=== PATIENT | male | born 1935 | race Caucasian/White ===

== ENCOUNTER 2017-02-07 14:02 | Emergency (ER) | payer OTHER, MEDICARE ==
[~2017-02-07] VITALS: Ht 177.8 cm; Wt 74.4 kg
--- NOTE | ~2017-02-07 | EKG ---
[place] [address] [place] [facility] [place] [address] ELECTROCARDIOGRAM REPORT Name: BRITTALEXYKEY MARTIN [id number] Admission: 02/07/17 Attend Phys: Discharge: 02/07/17 Date of : 39 Report #: [id number] THIS REPORT FOR: //name// [facility] ED Test Date: 2017-02-07 Test Time: 14:26:50 Pat Name: LEXY CALLEJAS Department: Room: Gender: M Senior Hardware Design Engineer: [id number] : 1935 Requested By: Britt Chase Order Number: [id number] MD: Nik Nicolas Measurements Intervals [place] Rate: 60 P: MA: QRS: 269 QRSD: 137 T: 90 QT: 474 QTc: 474 Interpretive Statements Afib/flutter and ventricular-paced rhythm No further analysis attempted due to paced rhythm Compared to ECG 12/04/2014 01:04:53 No significant changes Electronically Signed On 02-09-2017 22:11:12 CDT by Nik Nicolas [email or web address] <ELECTRONICALLY SIGNED> By: Nik Nicolas MD 02/09/17 2211 1426 142 Nik Nicolas MD /[facility]
[~2017-02-07 14:02] MED LIST: ASPIR 8181 MG PO; ASPIRIN EC81 M1 PO; COUMADIN 5 MG TA5 M1 PO; COUMADIN7.5 MG PO; ENOXAPARIN80 MG/0.8 SUBQ; FISH OIL 1,0001 EAC5 PO; FISH OIL 1,4001 EACH PO; GLUCOSAMINE1000 MG PO; IRON325 PO; KEFLEX500 MG PO; LACTULOSE20 GM/30 M PO; LANOXIN 0.120.125 M1 PO; LEVAQUIN 750 M750 MG PO; NORCO 5-325 TA1 EACH PO; PAIN & FEVER325 MG PO; PRILOSEC 20 MG20 MG PO; PRILOSEC20 MG PO; PROTONIX40 M2 PO; RED YEAST RICE600 MG PO; SOTALOL 120 MG120 MG PO; SOTALOL160 MG PO; SPIRONOLACTONE25 M1 PO; VITAMIN D1000 UNI1 PO; VITAMIN D31000 UNI2 PO; VITAMIN D32000 UNI1 PO; VITAMIN D400 UNI1 PO; XIFAXAN550 M1; ZOFRAN ODT4 MG PO
[2017-02-07 14:47] LABS: HEMATOCRIT 48.7 % (42.0-52.0); MCH 36.8 pg (26.0-34.0); MCHC 32.9 g/dL (28.0-37.0); RBC 4.35 mil/uL (4.50-6.00); RDW 15.2 % (10.5-14.5); URINE BILIRUBIN NEGATIVE (Negative); URINE BLOOD 2+ (Negative); URINE COLOR YELLOW; URINE GLUCOSE-RANDOM* 3+ (Negative); URINE KETONES NEGATIVE (Negative); URINE NITRITE NEGATIVE (Negative); URINE PROTEIN (DIPSTICK) TRACE (Negative); WBC 11.9 thou/uL (4.0-11.0)
[2017-02-07 14:49] LABS: MANUAL DIFF YES; PLATELET COUNT 93 thou/uL (150-400)
[2017-02-07 14:50] LABS: ANION GAP 4 mmol/L (7-16); BUN 25 mg/dL (7-18); CALCIUM 9.3 mg/dL (8.5-10.1); CHLORIDE 106 mmol/L (98-107); CO2 29 mmol/L (21-32); CREATININE 0.9 mg/dL (0.7-1.3); GLUCOSE 223 mg/dL (74-106); POTASSIUM 4.8 mmol/L (3.5-5.1); SODIUM 139 mmol/L (136-145)
[2017-02-07 14:58] LABS: BACTERIA None Seen /HPF (None Seen); CASTS None Seen /LPF (None Seen); SQUAMOUS None Seen /LPF (0-3); URINE RBC 3-10 Few /HPF (0-2); URINE WBC None Seen /HPF (0-5)
[2017-02-07 14:59] LABS: ALBUMIN 2.8 g/dL (3.4-5.0); ALKALINE PHOSPHATASE 332 U/L (46-116); CRYSTALS None Seen /LPF (None Seen); SGOT 61 U/L (15-37); SGPT 72 U/L (30-65); TOTAL BILIRUBIN 6.6 mg/dL (<0.1-1.0); TOTAL PROTEIN 6.2 g/dL (6.4-8.2); TROPONIN-I < 0.04 ng/mL (<0.04-0.07)
[2017-02-07 15:14] LABS: ABSOLUTE NEUTROPHILS 8.3 thou/uL (1.4-8.2); MACROCYTES 1+; TOTAL CELL COUNT 100
[2017-02-07 16:07] VITALS: BP 149/83
== END 2017-02-07 16:00 | disposition home or self-care (01) ==
LOC: ER 14:02
PROVIDERS: Nurse Practitioner Family
DX: K74.60 Unspecified cirrhosis of liver (principal); E86.0 Dehydration; E80.6 Other disorders of bilirubin metabolism; I48.91 Unspecified atrial fibrillation; I63.9 Cerebral infarction, unspecified; K76.6 Portal hypertension; Z86.73 Personal history of transient ischemic attack (TIA), and cerebral infarction without residual deficits; Z95.1 Presence of aortocoronary bypass graft; Z86.2 Personal history of diseases of the blood and blood-forming organs and certain disorders involving the immune mechanism; Z87.891 Personal history of nicotine dependence

== ENCOUNTER → 2017-06-16 | Outpatient (CLI) | payer OTHER, MEDICARE ==
[~2017-06-16] MED LIST changes: +ATENOLOL 50MG T50 M1 PO; +GLIMEPIRIDE1 MG PO; +VITAMIN D1000 UNI2 PO
== END ==
LOC: ULTRA 15:35
DX: K74.60 Unspecified cirrhosis of liver (principal); R18.8 Other ascites; J90 Pleural effusion, not elsewhere classified

== ENCOUNTER 2017-07-02 16:44 | Inpatient (IN) | payer OTHER, MEDICARE ==
[~2017-07-02] VITALS: Ht 175.3 cm; Wt 68.3 kg
--- NOTE | ~2017-07-02 | H ---
[facility] [place] [address] HISTORY AND PHYSICAL Name: LEXY CALLEJAS Room #: 420-P ADM IN M.R.#: [id number] Admission: 07/02/17 Attend Phys: Jimmy Harding Discharge: Date of : 39 Report #: [id number] THIS REPORT FOR: //name// CC: Mikal Salinas DATE OF SERVICE: 07/02/2017 CHIEF COMPLAINT: Weakness. HISTORY OF PRESENT ILLNESS: The patient is an 82-year-old gentleman, who was admitted from the office with weakness and a recent elevated white blood cell count. He was hospitalized twice in early May for new diagnosis of diabetes type 2 and required medication titration and education to stabilize this. He since has been home, but in recent weeks developed significant lower extremity edema suddenly that required the addition of metolazone for diuretic effect. He underwent abdominal ultrasound in mid May, which revealed his TIPS shunt still functioning appropriately. He otherwise has been his usual self. Recent lab work revealed ammonia level of only 22. Transaminase level slightly elevated in the 70s, but his white blood cell count of an outpatient testing was 40 two days ago. A repeat last night was 29. He denies any symptoms of infection including no fever, productive cough, sore throat, nausea, vomiting. He denies any excessive diarrhea, although he does have frequent stools due to chronic use of lactulose. PAST MEDICAL HISTORY: Idiopathic cirrhosis, history of hepatic encephalopathy, history of esophageal varices with GI bleed, history of paroxysmal AFib, coronary artery disease, cardioembolic stroke with TIA, hypertension, sick sinus syndrome. 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 PAST SURGICAL HISTORY: Pacemaker, TIPS procedure in 2013, left total hip in 2015. FAMILY HISTORY: Noncontributory. SOCIAL HISTORY: No chronic alcohol or tobacco use. He is and lives with his . ALLERGIES: None. MEDICATIONS: Atenolol 50 mg, lactulose twice a day, Lasix 40 mg, potassium 10 mEq, vitamin D, Amaryl 4 mg. REVIEW OF SYSTEMS: He denies headache, chest pain, shortness of breath, abdominal pain, constipation, dysuria, myalgias, arthralgias, syncope or fall. [address] [address] HISTORY AND PHYSICAL Name: LEXY CALLEJAS Room #: [facility] IN .R.#: [id number] Admission: 07/02/17 Attend Phys: Jimmy Harding Discharge: Date of : 39 Report #: [id number] OBJECTIVE: VITAL SIGNS: Temperature 36.5, pulse 50, respirations 18, blood pressure 99/55, O2 sat 99% on room air. GENERAL: He is awake and alert, in no distress. HEAD AND NECK: Unremarkable. He has resolving subconjunctival bleed in the right eye. LUNGS: Clear with no wheezing. HEART: Regular, no murmur. ABDOMEN: Soft, normoactive bowel sounds. No rebound or guarding. EXTREMITIES: No cyanosis, clubbing. There is just trace to 1+ pedal edema. His lower extremity edema is much improved from the office last week. NEUROLOGIC: Cranial nerves intact. Speech is fluent. He is oriented to surroundings and recognizes me, was able to walk under his own power to the bathroom. LABORATORY DATA: Urinalysis is unremarkable. Potassium was 3, creatinine 1.4. White count 29 with 88% segs. Chest x-ray was negative. Blood cultures are pending. Abdominal ultrasound pending. ASSESSMENT: 1. Idiopathic cirrhosis. 2. Leukocytosis. 3. Hypokalemia due to diuretic effect. 4. History of transjugular intrahepatic portosystemic shunt from 2013. 5. Severe protein-calorie malnutrition, albumin 1.9. 6. Recent new onset diabetes type 2. 7. Anemia of chronic disease. PLAN: Empiric antibiotics were started overnight, but since he has no infectious symptoms, we will discontinue those for now and await further studies: His ultrasound is pending. His other home medications have been ordered and potassium supplementation has been given. I will continue to monitor his status for any new signs or symptoms. <ELECTRONICALLY SIGNED> By: Mathew Urrutia MD 07/03/17 1629 0953 1021 Mathew Urrutia MD /nt
--- NOTE | ~2017-07-02 | D ---
[facility] [place] [address] DISCHARGE SUMMARY Name: LEXY CALLEJAS Room #: 420-P [facility] IN M.R.#: [id number] Admission: 07/02/17 Attend Phys: Jimmy Harding Discharge: 07/08/17 Date of : 39 Report #: [id number] THIS REPORT FOR: //name// CC: Mikal Salinas FINAL DIAGNOSES: 1. Gram-negative bacteremia. 2. Cirrhosis. 3. Diabetes type 2. HOSPITAL COURSE: The patient was admitted with an elevated white count. Empiric antibiotics were started eventually by the third hospital day, gram-negative rods are growing from blood cultures. Urinalysis was fairly unremarkable and so was chest x-ray. Dr. Jabier Salinas followed him from [place] and ordered antibiotics accordingly. The final identification was still pending and this was going to require the sample to be sent out of state. His white count normalized and other medications were continued. He had no other interval complications. Blood sugars were radically controlled with oral agent due to his new diagnosis of diabetes, but generally ranged from the 80s-90s in the morning to 320 by evening. PHYSICAL EXAMINATION: GENERAL: On the day of discharge, he was awake and alert with stable vital signs. LUNGS: Clear. HEART: Regular. ABDOMEN: Soft, normoactive bowel sounds. EXTREMITIES: Showed 1+ ankle and pedal edema. DISPOSITION: He is discharged to home with diet, activity as tolerated, resume all home medications with Cipro 750 mg b.i.d. for one week. Follow up with Dr. Jabier Salinas and Dr. Yury Salinas in 1 week. <ELECTRONICALLY SIGNED> By: Mathew Urrutia MD 07/10/1731 8 Mathew Urrutia MD /nt
--- NOTE | ~2017-07-02 | HC ---
[facility] [place] [address] CONSULTATION Name: BRITTALEXY MARTIN Room #: 420-P ADM IN M.R.#: [id number] Admission: 07/02/17 Attend Phys: Jimmy Harding Discharge: Date of : 37 Report #: [id number] THIS REPORT FOR: //name// CC: Mikal Salinas DATE OF SERVICE: 07/04/2017 REASON FOR CONSULTATION: I was asked to evaluate concerning Gram-negative bacteremia in the setting of cirrhosis. HISTORY OF PRESENT ILLNESS: The patient is an 82-year-old who was admitted on 07/02/2017 with lethargy and hyperglycemia. He was found to have a white count of 29,000. No other localizing symptoms were identified. He does have a TIPS shunt in place and has been studied and shows that it is functioning reasonably well. His ammonia levels have been reasonable. He has had no cough or sputum production. There has been no nausea, vomiting or diarrhea. No hemoptysis or bloody stools. Minimal dysuria. No skin lesions. His stools remain loose since he is on lactulose. REVIEW OF SYSTEMS: Negative other than what is described above. PAST MEDICAL HISTORY: Idiopathic cirrhosis with encephalopathy, esophageal varices and upper GI bleed, status post TIPS procedure with good control. 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 Does have a pacemaker, has underlying paroxysmal atrial fibrillation and coronary artery disease. He has had a cardioembolic stroke and hypertension, sick sinus syndrome, and left total hip arthroplasty. ALLERGIES: None known. MEDICATIONS: As noted on his MAR, now on Zosyn. FAMILY HISTORY: Noncontributory. SOCIAL HISTORY: He is a nonsmoker, no significant alcohol intake. He is . PHYSICAL EXAMINATION: VITAL SIGNS: He is afebrile, hemodynamically stable. GENERAL: He is a bit lethargic, but oriented and able to converse reasonably well during the evaluation. He has had scleral icterus. HEENT: Otherwise, unremarkable. NECK: Supple. LUNGS: Clear. HEART: Regular without appreciable murmur. [facility] [address] [place] [address] CONSULTATION Name: CALLEJASLEXY Room #: 420-P ADM IN .R.#: [id number] Admission: 07/02/17 Attend Phys: Jimmy Harding Discharge: Date of : 37 Report #: [id number] ABDOMEN: Soft, nontender. No hepatosplenomegaly or mass. EXTREMITIES: 1+ peripheral edema in the lower extremities. LABORATORY STUDIES: Sodium 142, potassium 3.1, bicarb of 36, creatinine 1.3, ALT 66, bilirubin 6.2, albumin of 1.9. Hemoglobin 12.6, platelet count 103,000. White count initially 29,000, now down to 16.8. Urinalysis unremarkable. Blood cultures 2/2 cultures showing gram-negative bacilli. Ultrasound of the abdomen showed that his TIPS velocities are stable. No evidence of portal hypertension. Chest x-ray was clear. IMPRESSION: An 82-year-old with cirrhosis, presents with Gram-negative bacteremia. I suspect intra-abdominal source of infection. Would recommend CT scan of the abdomen and continue with Zosyn as ordered until further information is back from his cultures. <ELECTRONICALLY SIGNED> By: Jabier Salinas MD 07/07/17 0957 1347 0019 Jabier Salinas MD /nt
[2017-07-02] MEDS ORDERED: KLOR-CON 1010 MEQ PO (18:46)
[2017-07-02] MEDS ORDERED: LASIX 20 MG TAB20 MG PO (18:46)
[2017-07-02 20:00] VITALS: BP 110/53
[2017-07-02 21:11] LABS: HEMATOCRIT 37.1 % (42.0-52.0); HEMOGLOBIN 12.7 gm/dL (14.0-18.0); MCH 38.5 pg (26.0-34.0); MCHC 34.3 g/dL (28.0-37.0); MCV 112.2 fL (80.0-100.0); PLATELET COUNT 102 thou/uL (150-400); RBC 3.31 mil/uL (4.50-6.00); RDW 16.6 % (10.5-14.5); WBC 29.3 thou/uL (4.0-11.0)
[2017-07-02 21:24] LABS: ALBUMIN 1.9 g/dL (3.4-5.0); CALCIUM 8.9 mg/dL (8.5-10.1); CREATININE 1.6 mg/dL (0.7-1.3); TOTAL BILIRUBIN 6.2 mg/dL (<0.1-1.0); TOTAL PROTEIN 5.2 g/dL (6.4-8.2)
[2017-07-02 21:33] LABS: POTASSIUM 2.8 mmol/L (3.5-5.1)
[2017-07-02 21:40] LABS: ABSOLUTE NEUTROPHILS 25.8 thou/uL (1.4-8.2); ANISOCYTOSIS 1+; MACROCYTES 3+
[2017-07-03 00:34] LABS: CALCIUM 8.8 mg/dL (8.5-10.1); CREATININE 1.4 mg/dL (0.7-1.3); MAGNESIUM 1.8 mg/dL (1.8-2.4)
[2017-07-03 04:30] VITALS: BP 128/59
[2017-07-03 06:41] VITALS: BP 160/59
[2017-07-03 07:43] VITALS: BP 99/55
[2017-07-03 09:19] LABS: URINE BILIRUBIN NEGATIVE (Negative); URINE BLOOD 1+ (Negative); URINE CLARITY CLEAR; URINE COLOR YELLOW; URINE GLUCOSE-RANDOM* NEGATIVE (Negative); URINE KETONES NEGATIVE (Negative); URINE LEUKOCYTES-REFLEX NEGATIVE (Negative); URINE NITRITE-REFLEX NEGATIVE (Negative); URINE PROTEIN (DIPSTICK) NEGATIVE (Negative); URINE UROBILINOGEN 0.2 E.U./dl (0.2-1.0)
[2017-07-03 09:35] LABS: BACTERIA-REFLEX 1-9 Few /HPF (None Seen); CRYSTALS None Seen /LPF (None Seen); HYALINE CASTS 0-3 Few /LPF (None Seen); SQUAMOUS None Seen /LPF (0-3); URINE RBC 3-10 Few /HPF (0-2); URINE WBC-REFLEX 0-5 Rare /HPF (0-5)
[2017-07-03 11:14] LABS: HEMATOCRIT 35.6 % (42.0-52.0); HEMOGLOBIN 12.7 gm/dL (14.0-18.0); MCH 39.9 pg (26.0-34.0); MCHC 35.6 g/dL (28.0-37.0); MCV 112.1 fL (80.0-100.0); RBC 3.18 mil/uL (4.50-6.00); RDW 16.4 % (10.5-14.5); WBC 24.4 thou/uL (4.0-11.0)
[2017-07-03 11:22] LABS: CALCIUM 8.4 mg/dL (8.5-10.1); CREATININE 1.5 mg/dL (0.7-1.3); POTASSIUM 3.2 mmol/L (3.5-5.1)
[2017-07-03 15:53] VITALS: BP 107/60
[2017-07-03 20:37] VITALS: BP 105/55
[2017-07-04 04:09] VITALS: BP 134/61
[2017-07-04 06:06] LABS: HEMATOCRIT 36.9 % (42.0-52.0); HEMOGLOBIN 12.6 gm/dL (14.0-18.0); MCH 38.7 pg (26.0-34.0); MCHC 34.1 g/dL (28.0-37.0); MCV 113.5 fL (80.0-100.0); RBC 3.26 mil/uL (4.50-6.00); RDW 16.9 % (10.5-14.5); WBC 16.8 thou/uL (4.0-11.0)
[2017-07-04 06:21] LABS: CALCIUM 8.3 mg/dL (8.5-10.1); CREATININE 1.3 mg/dL (0.7-1.3); POTASSIUM 3.1 mmol/L (3.5-5.1)
[2017-07-04 07:35] VITALS: BP 118/57
[2017-07-04 15:45] VITALS: BP 109/60
[2017-07-04 20:00] VITALS: BP 119/62
[2017-07-05 04:00] VITALS: BP 151/79
[2017-07-05 06:13] LABS: HEMATOCRIT 37.7 % (42.0-52.0); HEMOGLOBIN 13.3 gm/dL (14.0-18.0); MCH 39.4 pg (26.0-34.0); MCHC 35.3 g/dL (28.0-37.0); MCV 111.5 fL (80.0-100.0); RBC 3.38 mil/uL (4.50-6.00); RDW 16.7 % (10.5-14.5); WBC 12.1 thou/uL (4.0-11.0)
[2017-07-05 06:31] LABS: ALBUMIN 1.7 g/dL (3.4-5.0); CALCIUM 8.9 mg/dL (8.5-10.1); CREATININE 1.1 mg/dL (0.7-1.3); POTASSIUM 3.1 mmol/L (3.5-5.1); TOTAL BILIRUBIN 5.6 mg/dL (<0.1-1.0)
[2017-07-05 16:57] VITALS: BP 138/62
[2017-07-05 20:00] VITALS: BP 116/56
[2017-07-06 04:26] VITALS: BP 135/71
[2017-07-06 08:00] VITALS: BP 119/48
[2017-07-06 16:00] VITALS: BP 121/51
[2017-07-06 20:00] VITALS: BP 128/54
[2017-07-07 04:30] VITALS: BP 145/52
[2017-07-07 07:40] VITALS: BP 125/57
[2017-07-07 09:23] LABS: CREATININE 0.9 mg/dL (0.7-1.3); POTASSIUM 3.5 mmol/L (3.5-5.1)
[2017-07-07 16:20] VITALS: BP 133/67
[2017-07-07 19:15] VITALS: BP 121/57
[2017-07-08 03:33] VITALS: BP 102/49
[2017-07-08 06:46] LABS: HEMATOCRIT 33.9 % (42.0-52.0); HEMOGLOBIN 11.7 gm/dL (14.0-18.0); MCH 39.1 pg (26.0-34.0); MCHC 34.5 g/dL (28.0-37.0); MCV 113.1 fL (80.0-100.0); PLATELET COUNT 93 thou/uL (150-400); RDW 15.4 % (10.5-14.5); WBC 14.8 thou/uL (4.0-11.0)
[2017-07-08 07:39] VITALS: BP 115/59
[2017-07-08 07:50] LABS: ABSOLUTE NEUTROPHILS 10.7 thou/uL (1.4-8.2); ATYPICAL LYMPHS 1 %; METAMYELOCYTES 2 %; MYELOCYTES 2 %; POLYCHROMASIA OCCASIONAL
[2017-07-08 07:51] LABS: ANISOCYTOSIS 1+; MACROCYTES 3+
[2017-07-08 08:48] VITALS: BP 115/59
[2017-07-08] MEDS ORDERED: CIPROFLOXACIN500 M1 PO (09:16)
[2018-02-27] MEDS ORDERED: SPIRONOLACTONE25 M1 PO (21:26)
[2018-02-27] MEDS ORDERED: IBUPROFEN 200200 M1 PO (21:28)
[2018-03-01] MEDS ORDERED: SPIRONOLACTONE25 M1 PO (15:47)
[2018-03-04] MEDS ORDERED: NORCO 10-325 T1 EACH PO (12:12)
[2018-03-04] MEDS ORDERED: LASIX 20 MG TAB20 MG PO (12:14)
== END 2017-07-08 10:55 | disposition home or self-care (01) | DRG 432 ==
LOC: 4E 16:44 → ENTRNSPT 07-08 10:35 → EDTRNSPTSTS 07-08 10:37 → 4E 07-08 10:55
PROVIDERS: Internal Medicine; Internal Medicine Geriatric Medicine; Specialist
DX: K74.69 Other cirrhosis of liver (principal); G93.40 Encephalopathy, unspecified; E43 Unspecified severe protein-calorie malnutrition; R78.81 Bacteremia; I48.0 Paroxysmal atrial fibrillation; I25.10 Atherosclerotic heart disease of native coronary artery without angina pectoris; I10 Essential (primary) hypertension; I49.5 Sick sinus syndrome; E11.9 Type 2 diabetes mellitus without complications; Z96.642 Presence of left artificial hip joint; D63.8 Anemia in other chronic diseases classified elsewhere; E87.6 Hypokalemia; T50.2X5A Adverse effect of carbonic-anhydrase inhibitors, benzothiadiazides and other diuretics, initial encounter; Z86.73 Personal history of transient ischemic attack (TIA), and cerebral infarction without residual deficits; Z87.891 Personal history of nicotine dependence; Z95.0 Presence of cardiac pacemaker; Z68.22 Body mass index [BMI] 22.0-22.9, adult; Y92.89 Other specified places as the place of occurrence of the external cause
CPT/HCPCS: 10783

== ENCOUNTER 2018-01-23 11:30 | Emergency (ER) | payer OTHER, MEDICARE ==
[~2018-01-23] VITALS: Ht 177.8 cm; Wt 72.6 kg
--- NOTE | ~2018-01-23 | EKG ---
[place] [address] [place] [address] ELECTROCARDIOGRAM REPORT Name: LEXY CALLEJAS [facility]: [facility] [id number] Admission: 01/23/18 Attend Phys: Discharge: Date of : 37 Report #: [id number] THIS REPORT FOR: //name// [facility] ED Test Date: 2018-01-23 Test Time: 11:51:32 Pat Name: LEXY CALLEJAS Department: Room: Gender: Car Loader: katelin : 1935 Requested By: Qi Mace Order Number: [id number] MD: Donnie Hernandez Measurements Intervals [place] Rate: 80 P: 47 NM: 198 QRS: -82 QRSD: 134 T: 65 QT: 423 QTc: 488 Interpretive Statements Atrial-sensed ventricular-paced rhythm No further analysis attempted due to paced rhythm Compared to ECG 06/07/2017 21:22:19 Atrial fibrillation no longer present Electronically Signed On 01-23-2018 14:59:11 CDT by Donnie Hernandez [email or web address] <ELECTRONICALLY SIGNED> By: Donnie Hernandez MD, [facility] 01/23/18 1459 1151 1151 Donnie Hernandez MD, [facility] /EPI
[~2018-01-23 11:30] MED LIST changes: +CIPROFLOXACIN500 M1 PO; +KLOR-CON 1010 MEQ PO; +LASIX 20 MG TAB20 MG PO
[2018-01-23 12:08] LABS: CALCIUM 8.9 mg/dL (8.5-10.1); CREATININE 0.8 mg/dL (0.7-1.3); POTASSIUM 3.6 mmol/L (3.5-5.1)
[2018-01-23 12:10] LABS: HEMOGLOBIN 15.4 gm/dL (14.0-18.0); MCH 39.2 pg (26.0-34.0); MCHC 35.1 g/dL (28.0-37.0); MCV 111.7 fL (80.0-100.0); RBC 3.94 mil/uL (4.50-6.00); RDW 16.8 % (10.5-14.5); WBC 8.7 thou/uL (4.0-11.0)
[2018-01-23 12:13] LABS: ALBUMIN 2.5 g/dL (3.4-5.0); TOTAL BILIRUBIN 5.8 mg/dL (<0.1-1.0)
[2018-01-23] MEDS ORDERED: ACETAMINOPHEN-1 EAC1 PO (12:29)
[2018-01-23 12:32] LABS: TOTAL PROTEIN 5.6 g/dL (6.4-8.2)
[2018-01-23] MEDS ORDERED: NORCO 5-325 TA1 EACH PO (12:32)
[2018-01-23] MEDS ORDERED: KEFLEX500 M1 PO (12:32)
[2018-01-23 12:38] LABS: ABSOLUTE NEUTROPHILS 6.3 thou/uL (1.4-8.2); METAMYELOCYTES 1 %
[2018-01-23 12:39] LABS: PLATELET COUNT 90 thou/uL (150-400); PLATELET ESTIMATE DECREASED
[2018-01-23 12:40] LABS: ANISOCYTOSIS 1+; MACROCYTES 2+; POLYCHROMASIA SLIGHT
[2018-01-23 16:45] VITALS: BP 132/78
== END 2018-01-23 16:46 | disposition home or self-care (01) ==
LOC: ER 11:30
PROVIDERS: Physician Assistant
DX: G89.18 Other acute postprocedural pain (principal); M54.5 Low back pain; R53.1 Weakness; I48.91 Unspecified atrial fibrillation; Z95.0 Presence of cardiac pacemaker; I25.10 Atherosclerotic heart disease of native coronary artery without angina pectoris; K74.60 Unspecified cirrhosis of liver; K72.90 Hepatic failure, unspecified without coma; E78.5 Hyperlipidemia, unspecified; Z86.73 Personal history of transient ischemic attack (TIA), and cerebral infarction without residual deficits; Z87.891 Personal history of nicotine dependence; Z90.89 Acquired absence of other organs; Z96.642 Presence of left artificial hip joint

== ENCOUNTER 2018-03-16 15:42 | Inpatient (IN) | payer OTHER, MEDICARE ==
[~2018-03-16] VITALS: Ht 175.3 cm; Wt 61.5 kg
--- NOTE | ~2018-03-16 | H ---
[facility] [place] [address] HISTORY AND PHYSICAL Name: LEXY CALLEJAS Room #: 170-16 ADM IN M.R.#: [id number] Admission: 03/16/18 Attend Phys: Prachi Arnold MD Discharge: Date of : 37 Report #: [id number] THIS REPORT FOR: //name// CC: Mikal Arnold DATE OF SERVICE: 03/16/2018 CHIEF COMPLAINT: Weakness and confusion. HISTORY OF PRESENT ILLNESS: The patient is an 82-year-old gentleman with multiple medical problems including cirrhosis of the liver, presented to the Emergency Room from care home rehabilitation with confusion and a little bit of abdominal pain. His said he had been rehabilitating and "doing well" until yesterday evening. She said over the weekend, they had family visitors and he seemed to be getting along okay. She said yesterday he just became progressively more lethargic and confused and complained of low abdominal pain. There were no reports of fever, chills, nausea or vomiting. PAST MEDICAL HISTORY: Nonalcohol-related cirrhosis of the liver, I believe it has been diagnosed as idiopathic. He has had esophageal varices with bleed in the past: Does have a TIPS shunt in place. History of hepatic encephalopathy and history of steroid-induced hyperglycemia. He has had recent multiple vertebral lumbar compression fractures and had several vertebroplasty procedures at [facility] in the summer this year. PAST SURGICAL HISTORY: Unknown. FAMILY HISTORY: Noncontributory. SOCIAL HISTORY: He is , had been living with his until recently. He has been in and out of rehab centers and care home. No chronic alcohol or tobacco use. ALLERGIES: None. MEDICATIONS: Atenolol 50 mg, Aldactone 25 mg, lactulose 20 grams b.i.d., Lasix 20 mg, Zofran. It appeared that there had been in order from care home for OxyContin. REVIEW OF SYSTEMS: He is unable to give review. OBJECTIVE: VITAL SIGNS: Temperature 36.8, pulse 85, respirations 12, blood pressure 110/52, O2 sat 97% on room air. GENERAL: He is drowsy, but opens his eyes and confused. [facility] [address] [place] [address] HISTORY AND PHYSICAL Name: LEXY CALLEJAS Room #: 17016 ADM IN ..#: [id number] Admission: 03/16/18 Attend Phys: Prachi Arnold MD Discharge: Date of : 37 Report #: [id number] HEAD AND NECK: Unremarkable. LUNGS: Clear with no wheezing. HEART: Regular, no murmur. ABDOMEN: Soft, normoactive bowel sounds. EXTREMITIES: There is 2+ edema in the lower legs and dependent edema around the elbows. NEUROLOGIC: He moves all extremities. Global strength about 3/5. LABORATORY DATA: Pertinent ER findings are ammonia 56. CT of the abdomen showed some mild pleural effusions, but it appears the TIPS is in place and patent. ASSESSMENT: 1. Hepatic encephalopathy. 2. Idiopathic cirrhosis. 3. TIPS shunt in place. 4. Anemia of chronic disease. 5. Severe protein-calorie malnutrition, albumin 2.3. PLAN: He has received extra dose of lactulose in the ER and at this point, I will discontinue his narcotics. Supportive measures in place for now. Await urine culture before more antibiotics at this point. <ELECTRONICALLY SIGNED> By: Mathew Urrutia MD 03/17/18 1502 1014 1044 Mathew Urrutia MD /nt
--- NOTE | ~2018-03-16 | D ---
[facility] [place] [address] DISCHARGE SUMMARY Name: LEXY CALLEJAS Room #: 462-P [facility] IN M.R.#: [id number] Admission: 03/16/18 Attend Phys: Prachi Arnold MD Discharge: 03/19/18 Date of : 37 Report #: [id number] THIS REPORT FOR: //name// CC: Mikal Arnold DATE OF SERVICE: 03/19/2018 FINAL DIAGNOSES: 1. 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 2. Nonalcoholic cirrhosis. 3. Chronic back pain. 4. Chronic vertebral compression fractures. HOSPITAL COURSE: The patient was admitted with confusion. His ammonia level was only 56 approximately. He received 1 extra dose of lactulose and then his usual baseline dose was continued. The following day, his ammonia level was normal. It also appeared he was prescribed oxycodone 10 mg at his [facility] facility for his back pain related to vertebral compression fractures. I felt this was the source of his encephalopathy, that medication was discontinued and by the discharge day, his mental status returned to baseline. He was up and walking with a roller walker. Physical therapy over 200 feet and was not experiencing significant back pain. Other medications were continued. He did have some hyperglycemia following a meal, he had been off any diabetic medication for quite some time as he felt this was steroid induced while taking prednisone earlier in the year for his liver disease. Orders will be given for the [facility] facility to track his blood sugar with Accu-Cheks and they can proceed with a sliding scale as indicated. DISPOSITION: He will transfer back to [facility]. I signed his transfer medications. Blood sugars with meals and bedtime. Follow up with Dr. Salinas in 2 weeks. Avoid oxycodone due to hypersedation related to side effect of medication. By: 1148 1209 Mathew Urrutia MD /nt
[~2018-03-16 15:42] MED LIST changes: +ACETAMINOPHEN-1 EAC1 PO; +IBUPROFEN 200200 M1 PO; +KEFLEX500 M1 PO; +NORCO 10-325 T1 EACH PO
[2018-03-16 15:43] VITALS: BP 125/71
[2018-03-16 16:09] LABS: HEMATOCRIT 36.8 % (42.0-52.0); HEMOGLOBIN 12.6 gm/dL (14.0-18.0); MCH 39.7 pg (26.0-34.0); MCHC 34.2 g/dL (28.0-37.0); MCV 116.1 fL (80.0-100.0); RBC 3.17 mil/uL (4.50-6.00); RDW 17.7 % (10.5-14.5); WBC 11.6 thou/uL (4.0-11.0)
[2018-03-16 16:22] LABS: CALCIUM 9.4 mg/dL (8.5-10.1); CREATININE 0.9 mg/dL (0.7-1.3); POTASSIUM 4.7 mmol/L (3.5-5.1)
[2018-03-16 16:28] LABS: ALBUMIN 2.3 g/dL (3.4-5.0); TOTAL BILIRUBIN 5.8 mg/dL (<0.1-1.0); TOTAL PROTEIN 5.9 g/dL (6.4-8.2)
[2018-03-16] MEDS ORDERED: LIDOCAINE PAIN1 EACH TOP (16:50)
[2018-03-16] MEDS ORDERED: ONDANSETRON HCL4 M2 PO (16:51)
[2018-03-16] MEDS ORDERED: OXYCONTIN10 M1 PO (16:52)
[2018-03-16] MEDS ORDERED: HYDROXYZINE HCL25 M1 PO (16:52)
[2018-03-16 16:59] LABS: PLATELET COUNT 95 thou/uL (150-400)
[2018-03-16 17:01] LABS: ABSOLUTE NEUTROPHILS 9.2 thou/uL (1.4-8.2); ANISOCYTOSIS 2+; ATYPICAL LYMPHS 1 %; MACROCYTES 2+
[2018-03-16 17:02] LABS: POLYCHROMASIA OCCASIONAL
[2018-03-16 17:32] LABS: URINE BILIRUBIN NEGATIVE (Negative); URINE BLOOD 2+ (Negative); URINE CLARITY CLEAR; URINE COLOR YELLOW; URINE GLUCOSE-RANDOM* NEGATIVE (Negative); URINE KETONES NEGATIVE (Negative); URINE LEUKOCYTES-REFLEX NEGATIVE (Negative); URINE NITRITE-REFLEX NEGATIVE (Negative); URINE PROTEIN (DIPSTICK) NEGATIVE (Negative); URINE SPECIFIC GRAVITY <= 1.005 (1.005-1.035)
[2018-03-16 17:55] LABS: BACTERIA-REFLEX 1-9 Few /HPF (None Seen); CASTS None Seen /LPF (None Seen); CRYSTALS None Seen /LPF (None Seen); SQUAMOUS None Seen /LPF (0-3); URINE RBC 0-2 Rare /HPF (0-2); URINE WBC-REFLEX None Seen /HPF (0-5)
[2018-03-16 23:00] VITALS: BP 122/48
[2018-03-17] VITALS (8 sets, daily range): BP systolic 110–163; BP diastolic 52–78
[2018-03-18 04:00] VITALS: BP 110/54; BP 129/59
[2018-03-18 06:02] LABS: CALCIUM 9.7 mg/dL (8.5-10.1); POTASSIUM 3.8 mmol/L (3.5-5.1)
[2018-03-18 07:25] VITALS: BP 147/63
[2018-03-18 15:30] VITALS: BP 127/59
[2018-03-18 19:29] VITALS: BP 130/63
[2018-03-19 06:04] LABS: CREATININE 1.2 mg/dL (0.7-1.3); POTASSIUM 3.4 mmol/L (3.5-5.1)
[2018-03-19 07:30] VITALS: BP 110/60
[2018-03-19] MEDS ORDERED: TORSEMIDE20 MG PO (11:54)
[2018-03-19] MEDS ORDERED: ACETAMINOPHEN325 M1 PO (11:54)
[2018-03-19 13:27] VITALS: BP 110/60
[2018-03-19 16:25] VITALS: BP 110/60
== END 2018-03-19 17:13 | DRG 441 ==
LOC: ER 15:42 → EROBS 17:43 → 4W 17:43
PROVIDERS: Emergency Medicine; Internal Medicine Geriatric Medicine
DX: K72.90 Hepatic failure, unspecified without coma (principal); E43 Unspecified severe protein-calorie malnutrition; M48.50XA Collapsed vertebra, not elsewhere classified, site unspecified, initial encounter for fracture; E78.5 Hyperlipidemia, unspecified; K74.60 Unspecified cirrhosis of liver; I48.91 Unspecified atrial fibrillation; Z96.642 Presence of left artificial hip joint; R73.9 Hyperglycemia, unspecified; D63.8 Anemia in other chronic diseases classified elsewhere; T40.695A Adverse effect of other narcotics, initial encounter; Z95.5 Presence of coronary angioplasty implant and graft; Y92.89 Other specified places as the place of occurrence of the external cause; Z95.0 Presence of cardiac pacemaker; Z68.20 Body mass index [BMI] 20.0-20.9, adult; Z87.891 Personal history of nicotine dependence; Z86.73 Personal history of transient ischemic attack (TIA), and cerebral infarction without residual deficits; Z79.899 Other long term (current) drug therapy
CPT/HCPCS: 10045

== ENCOUNTER → 2018-07-28 | Outpatient (CLI) | payer OTHER, MEDICARE ==
[~2018-07-28] MED LIST changes: +ACETAMINOPHEN325 M1 PO; +HYDROXYZINE HCL25 M1 PO; +LIDOCAINE PAIN1 EACH TOP; +ONDANSETRON HCL4 M2 PO; +OXYCONTIN10 M1 PO; +TORSEMIDE20 MG PO
== END ==
LOC: ULTRA 07:48
DX: J90 Pleural effusion, not elsewhere classified (principal); K74.60 Unspecified cirrhosis of liver; K76.6 Portal hypertension

== ENCOUNTER 2018-11-12 10:52 | Inpatient (IN) | payer OTHER, MEDICARE ==
[~2018-11-12] VITALS: Ht 177.8 cm; Wt 77.1 kg
[2018-11-12 10:55] VITALS: BP 124/43
[2018-11-12 12:26] LABS: HEMATOCRIT 30.1 % (42.0-52.0); HEMOGLOBIN 10.5 gm/dL (14.0-18.0); MCH 42.9 pg (26.0-34.0); MCHC 34.8 g/dL (28.0-37.0); MCV 123.2 fL (80.0-100.0); RBC 2.44 mil/uL (4.50-6.00); RDW 15.1 % (10.5-14.5); WBC 15.5 thou/uL (4.0-11.0)
[2018-11-12 12:34] LABS: ANION GAP 5 mmol/L (7-16); BUN 70 mg/dL (7-18); CALCIUM 9.2 mg/dL (8.5-10.1); CHLORIDE 100 mmol/L (98-107); CO2 30 mmol/L (21-32); CREATININE 1.9 mg/dL (0.7-1.3); GLUCOSE 400 mg/dL (74-106); POTASSIUM 5.5 mmol/L (3.5-5.1); SODIUM 135 mmol/L (136-145)
[2018-11-12 12:38] LABS: APTT 37.6 Seconds (24.5-32.8); INR 1.8; PROTIME 18.3 Seconds (9.3-11.4)
[2018-11-12 12:44] LABS: LIPASE 185 U/L (73-393); SGOT 66 U/L (15-37); SGPT 57 U/L (30-65); TOTAL PROTEIN 5.5 g/dL (6.4-8.2); TROPONIN-I <0.06 ng/mL (<0.06)
[2018-11-12 12:45] LABS: TOTAL BILIRUBIN 13.4 mg/dL (<0.1-1.0)
[2018-11-12 13:02] LABS: MACROCYTES 2+; PLATELET COUNT 62 thou/uL (150-400); PLATELET ESTIMATE DECREASED
[2018-11-12 13:38] LABS: URINE CREATININE-RANDOM* 79.9 mg/dL
[2018-11-12 17:05] VITALS: BP 138/57
[2018-11-12 18:13] VITALS: BP 121/61
[2018-11-12 18:38] VITALS: BP 135/73
[2018-11-12 19:39] VITALS: BP 124/83
--- NOTE | 2018-11-13 01:26 | NUR ---
Received pt from ED at 1900. Pt resting in bed. is at bedside. VSS. AOX4. Crackles on both lower lobes. Edema Left Hand and Both Legs. None alcoholic jaundice visible on skin and eyes. Skin is intact. IV right AC Saline Lock. Spoke to Dr. Urrutia for orders. Pt is on Diabetic diet and ordered am BMP. No identified needs at the moment. Will continue to monitor.
[2018-11-13 03:36] VITALS: BP 115/56
[2018-11-13 05:38] LABS: CALCIUM 9.1 mg/dL (8.5-10.1); CREATININE 1.3 mg/dL (0.7-1.3); POTASSIUM 4.7 mmol/L (3.5-5.1)
[2018-11-13 07:43] VITALS: BP 118/60
--- NOTE | 2018-11-13 13:30 | NUR ---
chart review. pt up in bed with fay at bedside. intro to cm " he needs pillow to elevate his arm. need his medication. on lactulose 2 times a day and if take it to close that can be back, non-alcoholic cirrhosis of liver and he need his lactulose. its cold in here and we got ride of his under wear because he wears pull ups at home and do you not carry those"/ fay. cm let pt and family know would be back after passed on information to bedside nurse. cm came back to visit bedside nurse had brought pillow, medication had ordered and blanket for who cold. son john paul in room for visit as well. intro to dcp, transition of care, snf and home health. " oh been to [facility] in past but will not go back and had [facility] in past we use them again"/fay. pt and reported " moved into [place] at [facility], 2nd floor right down from dinning room. uses cane, has shower stool, grab bars and call light. prior to hospital independent when feeling ok. eat most of meals in dinning room. have family and friend support when needed. been to [facility] after 2013. if needed rehab his time we go to [facility] and if need hh use [facility]"/fay and don. no co of pain or discomfort during visit. noted pt skin yellow, whites of eye yellow. discussed with MD, no anticipated dcp over weekend. pt did choice sheet and placed in dc sec of pt chart. will cont following as needed for dc needs.
--- NOTE | 2018-11-13 15:13 | NUR ---
ASSUMED CARE AT 0700, SHIFT ASSESSMENT DONE, VSS, MEDS GIVEN. DR BRAR ORDERED TUBI-SLP FOR BILATERAL LOWER EXTERMITY AND LEFT ARM. APPLIED PER INSTRUCTION. PT/OT ORDERED, WILL CONTINUE TO ASSESS AND ASSIST WITH ADLs NEEDED.
[2018-11-13 15:25] VITALS: BP 127/60
[2018-11-13 19:52] VITALS: BP 112/75
[2018-11-14 03:59] VITALS: BP 137/61
--- NOTE | 2018-11-14 07:32 | NUR ---
Assumed care at 1845. Pt resting in bed. AOX4. VSS. Shift assessment done. Bilateral lower extremity tube-oracle drm consultant still in place. Tube cloth opener hand on left hand too. Gave pain medication once. Lower extremity elevated. No identified needs at the moment. Will continue to monitor.
[2018-11-14 08:08] VITALS: BP 109/48
[2018-11-14 08:46] LABS: CALCIUM 8.7 mg/dL (8.5-10.1); CREATININE 1.3 mg/dL (0.7-1.3); POTASSIUM 4.6 mmol/L (3.5-5.1)
[2018-11-14 14:20] VITALS: BP 118/59
--- NOTE | 2018-11-14 19:33 | NUR ---
ASSUMED CARE AT 0700, SHIFT ASSESSMENT DONE, MEDS GIVEN, VSS. HAS TUBI-RECYCLABLE MATERIALS COLLECTOR ON BILATERAL LOWER EXTREMITY AND LEFT HAND. REPORTED PAIN, PRN TYLENOL GIVEN. WALKED WITH NURSING STAFF TWICE AROUND THE FLOOR. ACHS, COVERAGE NEEDED. WILL CONTINUE TO ASSESS AND ASSIST WITH ADLs NEEDED.
[2018-11-14 19:46] VITALS: BP 115/90
--- NOTE | 2018-11-15 02:32 | NUR ---
progress pt alert and oriented, vss. reports pain to thumb, arm, and pinky at this time states he has been taking tylenol as needed for pain with effect. Left arm, and bilateral lower extremeties still swollen , the weeping has slowed down , tubigrips in place. Up ad babatunde uses a cane at home but is using furniture in room and with staff outside of room. Reports generalized weakness . cxr showed lung infiltrates and pt continues on oral antibiotics.voiding per urinal and had a bm today. iv to rac saline locked. continue to monitor.
--- NOTE | 2018-11-15 10:46 | NUR ---
ASSUMED CARE AT 0700, SHIFT ASSESSMENT DONE, MEDS GIVEN, VSS. DENIES ANY PAIN, NAUSEA, VOMITING. STATES TUBI-PRICE ACCURACY SUPERVISOR WAS TOO TIGHT FOR LEFT HAND AND TOOK IT OFF. ENCOURAGED TO GET UP, SIT IN THE CHAIR AND TAKE A WALK. WILL CONTINUE TO ASSESS AND ASSIST WITH ADLs NEEDED.
[2018-11-15 15:13] VITALS: BP 123/73
[2018-11-15 19:44] VITALS: BP 111/61
--- NOTE | 2018-11-15 22:19 | EKG ---
[address] [address] ELECTROCARDIOGRAM REPORT Name: LEXY CALLEJAS Room #: 453-P ADM IN M.R.#: [id number] ������������������ Admission: 11/12/18 ������������������ Attend Phys: Mathew Urrutia MD Discharge: ������������������ Date of : 39 Report #: [id number] ����������������������������������������������������������������� [id number] THIS REPORT FOR: //name// [facility] ED Test Date: 2018-11-12 Test Time: 12:32:00 Pat Name: LEXY CALLEJAS Department: Room: [facility] Gender: M District Engineer: TSTTABATHA : 1935 Requested By: Gonzales Sotelo Order Number: [id number] MD: Nik Nicolas Measurements Intervals [place] Rate: 68 P: 32 [place]: 173 QRS: -77 QRSD: 147 T: 81 QT: 458 QTc: 488 Interpretive Statements A-V dual-paced rhythm with some inhibition No further analysis attempted due to paced rhythm Compared to ECG 03/01/2018 11:52:41 No significant changes Electronically Signed On 11-15-2018 22:19:44 CDT by Nik Nicolas [email or web address] ��������������������������������������������� <ELECTRONICALLY SIGNED> ���������������������������������������� By: Nik Nicolas MD ��������������������������������������������� 11/15/18 2219 1232 1232 Nik Nicolas MD /EPI
[2018-11-16 04:15] VITALS: BP 116/56
[2018-11-16 07:20] VITALS: BP 99/44
--- NOTE | 2018-11-16 07:50 | NUR ---
progress pt upset over diet order. vss, tubigrips soaked and removed, offered bath pt refused, new tubigrips placed in room to be reapplied after am care. medications given as ordered. continue poc.
--- NOTE | 2018-11-16 12:55 | NUR ---
Patient will discharge today. brand planner sent referral to [facility].
--- NOTE | 2018-11-16 13:40 | H ---
[facility] [place] [address] HISTORY AND PHYSICAL Name: LEXY CALLEJAS Room #: 453-P ADM IN M.R.#: [id number] Admission: 11/12/18 ������������������ Attend Phys: Mathew Urrutia MD Discharge: ������������������ Date of : 39 Report #: [id number] THIS REPORT FOR: //name// CC: Mikal Urrutia DATE OF SERVICE: 11/12/2018 CHIEF COMPLAINT: Weakness. HISTORY OF PRESENT ILLNESS: The patient is an 83-year-old gentleman with idiopathic cirrhosis who was admitted to the Emergency Room with worsening edema and weakness. He was found to have swelling of the lower legs and left arm and his says he was not responding to diuretics. He was also found with slight hyperkalemia and prerenal azotemia and was admitted to the hospital. Overnight his medicines have been held and after receiving Kayexalate in the Emergency Room, potassium has normalized. His creatinine is back to 1.3. PAST MEDICAL HISTORY: Cryptogenic cirrhosis, history of TIPS procedure, history of esophageal varices with GI bleed, hepatic encephalopathy, chronic thrombocytopenia, diabetes type 2, history of subdural hematoma in 1998, history of stroke 2000, history of AFib, pacemaker, history of PTCA and stent, portal gastropathy, left hip replacement and fracture in 2014. FAMILY HISTORY: Noncontributory. SOCIAL HISTORY: He is , lives with his . No chronic alcohol or tobacco use. ALLERGIES: SULFA. MEDICATIONS: Tylenol, torsemide, lactulose, atenolol and apparently his Aldactone had been discontinued. REVIEW OF SYSTEMS: He denies headache, chest pain, shortness of breath, abdominal pain, nausea, vomiting, diarrhea, constipation, dysuria and syncope. He is complaining of a productive cough. OBJECTIVE: VITAL SIGNS: Temperature 37, pulse 56, respirations 14, blood pressure 118/60 and O2 sat 100% on room air. GENERAL: He is awake and alert, in no distress. HEAD AND NECK: Unremarkable. LUNGS: Clear. He does have a productive cough. HEART: Regular, no murmur. ABDOMEN: Protuberant, soft, normoactive bowel sounds. [facility] [address] [place] [address] HISTORY AND PHYSICAL Name: LEXY CALLEJAS Room #: 453-P [facility] IN .R.#: [id number] Admission: 11/12/18 ������������������ Attend Phys: Mathew Urrutia MD Discharge: ������������������ Date of : 39 Report #: [id number] EXTREMITIES: There is 2+ edema around the left elbow. Trace edema in the lower legs. NEUROLOGIC: Global strength 3-4/5 throughout. He recognizes me as I have seen him many times before and he recognizes being at [place]. LABORATORY AND X-RAY DATA: Reviewed. ASSESSMENT: 1. Acute kidney injury, likely prerenal shock kidney due to diuretic use. 2. Hyperkalemia due to Aldactone, resolved. 3. Idiopathic cirrhosis. 4. Hepatic encephalopathy, chronic. 5. Severe protein-calorie malnutrition, albumin 2. 6. Anemia of chronic disease. 7. Acute bronchitis. 8. Diabetes type 2. PLAN: Hold his Demadex, but resume other home medications and symptomatic treatment for his bronchitis. I have spoken to the nurse about compression wraps for his legs and left arm. There may also be overall degree of caregiver burden and fatigue here from his as she is the primary caregiver at their assisted living facility. ��������������������������������������������� <ELECTRONICALLY SIGNED> ���������������������������������������� By: Mathew Urrutia MD ��������������������������������������������� 11/16/18 1340 1203 1231 Mathew Urrutia MD /nt
[2018-11-16 14:55] VITALS: BP 110/48
--- NOTE | 2018-11-16 15:27 | NUR ---
CM FOLLOWED UP WITH PT AND FAMILY AT BEDSIDE THIS DAY. THEY INDICATED THAT THEY WERE INTERESTED IN DISCHARGE BACK TO [facility] WITH HOSPICE SERVICES. THEY INDICATED THEY WANTED TO USE [facility]. REFERRAL WAS SENT AND THEY WILL HAVE NURSE ROGER HERE TO ASSESS PT FOR ADMISSION AT 1600 THIS EVENING. THEY INDICATED THEY DON'T FEEL A HOSPITAL BED WILL WORK IN THEIR APT AND THAT THEY WISH TO PROVIDE TRANSPORT VIA PERSONAL VEHICLE ONCE MEDICALLY STABLE. CM TO FOLLOW INDICATED WITH DC PLANNING.
--- NOTE | 2018-11-16 16:37 | NUR ---
ASSUMED CARE OF PATIENT AT 0715, PATIENT ALERT AND ORIENTED X 4. PATIENT UP WITH 1 ASSIST. PATIENT DENIES PAIN THIS AM. PATIENT HAS EDEMA TO BILATERAL LEGS 1+ AND LEFT ARM 2+ WITH SOME WEEPING AREAS TO LEFT ARM, PATIENT HAS [employer] TO BILATERAL LEGS AND LEFT ARM. PATIENT IS JAUNDICE OVER BODY. PATIENT REFUSING ALL MEDS, WANTS TO . DR MENDEZ HERE THIS AM, HAD MEETING WITH FAMILY WILL DISCHARGE TO HOME WITH HOSPICE. [facility] HERE TO EVAL PATIENT, AND PATIENT IS APPROPRIATE, WILL BE ADMITTED TO HOSPICE TOMORROW AT HOME. ALL SEND DISCHARGE PAPERWORK WITH PATIENT AND ALL PERSONAL BELONGINGS WILL BE SENT WITH THE PATIENT. WILL REMOVE RIGHT AC IV PRIOR TO DISCHARGE.
--- NOTE | 2018-11-16 16:41 | NUR ---
[facility] VISITED WITH PT AND IT WAS INDICATED THAT PT IS MEDICALLY APPROPRIATE FOR ADMISSION TO HOSPICE SERVICES. PT'S FAMILY IS GOINF TO PROVIDE TRANSPORT HOME VIA PERSONAL VEHICLE. [facility] IS GOING TO ADMIT PT TOMORROW MORNING AT 11:30AM PER PT AND FAMILY PREFERENCE. ORDERS FAXED TO [facility]. NO OTHER CM INTERVENTION INDICATED AT THIS TIME. CASE CLOSED.
[2018-11-16 16:44] VITALS: BP 110/48
[2018-11-16 16:46] VITALS: BP 110/48
--- NOTE | 2018-11-18 12:47 | D ---
[facility] [place] [address] DISCHARGE SUMMARY Name: LEXY CALLEJAS Room #: 453-P [facility] IN M.R.#: [id number] Admission: 11/12/18 ������������������ Attend Phys: Mathew Urrutia MD Discharge: 11/16/18 ������������������ Date of : 39 Report #: [id number] THIS REPORT FOR: //name// CC: Mikal Urrutia FINAL DIAGNOSIS: Cirrhosis. HOSPITAL COURSE: The patient was admitted from home with a mild elevation of his baseline chronic kidney disease. Diuretics were held and he was treated symptomatically. Dr. Salinas was able to visit with the patient and his and they elected hospice care. DISPOSITION: On the day of discharge, he will return to the care of his family with hospice and outpatient management. He will continue usual home medications. ��������������������������������������������� <ELECTRONICALLY SIGNED> ���������������������������������������� By: Mathew Urrutia MD ��������������������������������������������� 11/18/18 1247 1354 1412 Mathew Urrutia MD /nt
== END 2018-11-16 17:24 | disposition hospice, home (50) | DRG 682 ==
LOC: ER 10:52 → EROBS 14:47 → 4W 14:47
PROVIDERS: Emergency Medicine; ADMIT Internal Medicine Geriatric Medicine
DX: N17.9 Acute kidney failure, unspecified (principal); E43 Unspecified severe protein-calorie malnutrition; K74.69 Other cirrhosis of liver; Z86.73 Personal history of transient ischemic attack (TIA), and cerebral infarction without residual deficits; E87.5 Hyperkalemia; K72.10 Chronic hepatic failure without coma; D63.8 Anemia in other chronic diseases classified elsewhere; J20.9 Acute bronchitis, unspecified; E11.9 Type 2 diabetes mellitus without complications; Z96.642 Presence of left artificial hip joint; E78.5 Hyperlipidemia, unspecified; I48.91 Unspecified atrial fibrillation; Z95.0 Presence of cardiac pacemaker; Z95.5 Presence of coronary angioplasty implant and graft; Z88.2 Allergy status to sulfonamides; Z79.84 Long term (current) use of oral hypoglycemic drugs; Z68.24 Body mass index [BMI] 24.0-24.9, adult
CPT/HCPCS: 10040